=== PATIENT | male | born 1970 | race Caucasian/White ===

== ENCOUNTER 2017-10-22 14:45 | Emergency (ER) | payer BC ==
[~2017-10-22] VITALS: Ht 167.6 cm; Wt 88.1 kg
[~2017-10-22 14:45] MED LIST: ACET325T33 PO; FAMO20TA18 PO; LEVO750T25 PO; LOSA50TA2 PO; METR500T PO
[2017-10-22 14:47] VITALS: Ht 167.6 cm; Wt 88.1 kg
[2017-10-22 17:46] LABS: BASOPHIL # 0.1 10^3/ul (0.0-0.1); BASOPHILS % 0.7 % (0.0-2.0); EOSINOPHILS # 0.3 10^3/ul (0.0-0.5); EOSINOPHILS % 2.5 % (0.0-7.0); HEMATOCRIT 52.1 % (42.0-52.0); HEMOGLOBIN 17.4 g/dl (14.0-18.0); LYMPHOCYTES # 2.8 10^3/ul (0.8-2.9); LYMPHOCYTES % 22.7 % (15.0-51.0); MEAN CORPUSCULAR HEMOGLOBIN 29.8 pg (29.0-33.0); MEAN CORPUSCULAR HGB CONC 33.4 g/dl (32.0-37.0); MEAN CORPUSCULAR VOLUME 89.4 fl (82.0-101.0); MONOCYTE # 0.7 10^3/ul (0.3-0.9); MONOCYTES % 5.3 % (0.0-11.0); NEUTROPHIL # 8.5 10^3/ul (1.6-7.5); NEUTROPHILS % 68.4 % (39.0-77.0); PLATELET COUNT 271 10^3/UL (140-415); RED BLOOD COUNT 5.83 10^6/ul (4.70-6.10); RED CELL DISTRIBUTION WIDTH 13.2 % (11.5-14.5); WHITE BLOOD COUNT 12.4 10^3/ul (4.8-10.8)
--- NOTE | 2017-10-22 17:52 | RADRPT ---
PROCEDURE: XR Chest. CLINICAL INDICATION: Chest pain TECHNIQUE: A single PA view of the chest was obtained. COMPARISON: 03/21/2016 FINDINGS: The cardiomediastinal silhouette is within normal limits. Right costophrenic angle blunting is seen. The remaining lungs and pleural spaces are clear. The soft tissues and osseous structures are unre markable. IMPRESSION: Possible small right pleural effusion. RPTAT: HPNM Physician Justino Date Time Electronically viewed and signed by Jeyson Gama Physician on 10/22/2017 17:52 /
[2017-10-22] MEDS ORDERED: KETOROLAC 15 MG INJ IV STA (17:58)
[2017-10-22 18:22] LABS: ANION GAP 18 (8-16); BLOOD UREA NITROGEN 13 mg/dl (7-20); CALCIUM 9.5 mg/dl (8.4-10.2); CARBON DIOXIDE 23 mmol/L (21-31); CHLORIDE 105 mmol/L (97-110); CREATININE 0.76 mg/dl (0.61-1.24); GLUCOSE 273 mg/dl (70-220); POTASSIUM 4.5 mmol/L (3.5-5.1); SODIUM 141 mmol/L (135-144)
--- NOTE | 2017-10-22 18:35 | RADRPT ---
PROCEDURE: US abdomen right upper quadrant CLINICAL INDICATION: Abdominal pain. TECHNIQUE: Lora scale and color Doppler ultrasound of the right upper quadrant of the abdomen was p erformed. COMPARISON: MRCP dated 03/16/[address] dated 03/15/2017. FINDINGS: Pancreas: Visualized portions are unremarkable. Liver: Enlarged measuring 19.5 cm. Echogenic lesion measuring approximately 3 cm in the right hepati c lobe. Hepatopedal flow in the main portal vein. Gallbladder: No cholelithiasis, gallbladder wall thickening, or pericholecystic fluid. Common bile duct: 4.9 mm in diameter. Right Kidney: 11.1 cm in length. No nephrolithiasis, hydronephrosis, or mass. Ascites: None. IMPRESSION: 1. Hepatomegaly. 2. Echogenic approximately 3 cm lesion in the right hepatic lobe, consistent with the patient's kno wn benign hemangioma. RPTAT: HLBP .Brian Sarmiento MD, Date Time Electronically viewed and signed by .Brian Sarmiento MD, on 10/22/2017 18:34 .P/
[2017-10-22 18:46] LABS: TROPONIN-I < 0.012 ng/ml (0.00-0.12)
--- NOTE | 2017-10-22 19:00 | ERD ---
ER Documentation Chief Complaint Chief Complaint chest pressure started today , rt upper abd pain x 2 weeks HPI This is a 47-year-old male with a past medical history of hypertension, diabetes , GERD, benign liver hemangioma, former alcohol abuse, chronic pancreatitis with cystic lesions and pseudocyst formation in the past with an MRI that could not rule out metastatic disease, previous pleural effusions requiring thoracentesis who is presenting with approximately 2 weeks of right sided back pain, right upper quadrant pain and right-sided chest pain. The patient does not endorse feeling sick. He denies any fever or chills. He states that depending on how he moves, the pain will get worse. The pain is improved when his massages his back. The patient states that he is not normally short of breath with this, but the pain will cause him to catch his breath. He denies personal family history of coronary artery disease or heart attack. The patient has had no headache or vision changes. The patient does not endorse neck or back pain. The patient denies lightheadedness or dizziness. The patient denies nausea or vomiting. The patient denies changes to bowel movements or urination. The patient has had no focal deficits. The patient has had no weakness or numbness or tingling to the face or extremities. ROS All systems reviewed and are negative except as per history of present illness. Medications Home Meds Active Scripts Cyclobenzaprine Hcl* (Cyclobenzaprine Hcl*) 10 Mg Tablet, 5 MG PO TID Y for MUSCLE SPASMS, #15 TAB Prov:ROBYN ZAMBRANO MD 10/22/17 Levofloxacin* (Levaquin*) 750 Mg Tablet, 750 MG PO DAILY for 14 Days, TAB Prov:ELEANOR PEARSON MD 03/21/16 Famotidine* (Famotidine*) 20 Mg Tablet, 20 MG PO BID for 30 Days, TAB Prov:ELEANOR PEARSON MD 03/21/16 Metronidazole* (Flagyl*) 500 Mg Tablet, 500 MG PO Q8 for 14 Days, TAB Prov:ELEANOR PEARSON MD 03/21/16 Losartan Potassium* (Cozaar*) 50 Mg Tablet, 100 MG PO DAILY for 30 Days, TAB Prov:ELEANOR PEARSON MD 03/21/16 Acetaminophen* (Tylenol*) 325 Mg Tablet, 650 MG PO Q6H Y for PAIN AND OR ELEVATED TEMP, #30 TAB Prov:ELEANOR PEARSON MD 03/21/16 Allergies Allergies: Coded Allergies: No Known Drug Allergies (Verified Allergy, Unknown, 03/13/16) PMhx/Soc History of Surgery: Yes (Appendectomy, thoracentesis) Anesthesia Reaction: No Hx Neurological Disorder: No Hx Respiratory Disorders: Yes (Pleural effusions) Hx Cardiac Disorders: Yes (Hypertension, diabetes) Hx Psychiatric Problems: No Hx Miscellaneous Medical Probl: Yes (Pancreatitis, liver hemangioma, pancreatic cystic lesions) Hx Alcohol Use: Yes (History of abuse) Hx Substance Use: No Hx Tobacco Use: Yes Smoking Status: Current every day smoker FmHx Family History: diabetes, No coronary disease Physical Exam Vitals Vital Signs Date Time Temp Pulse Resp B/P Pulse Ox O2 Delivery O2 Flow Rate FiO2 10/22/17 20:21 75 17 148/88 100 Room Air 10/22/17 18:50 76 17 177/98 100 Room Air 10/22/17 17:34 Nasal Cannula 2 10/22/17 14:47 98.1 63 18 199/109 98 Physical Exam Const: No apparent distress, well-developed, well-nourished Head: Normocephalic, Atraumatic Eyes: Normal Conjunctiva. Extraocular movements intact. Pupils equal, round and reactive to light ENT: Normal External Ears, Nose and Mouth. Neck: Full range of motion. No meningismus. Resp: Decreased breath sounds bibasilarly, no wheezes, rales or rhonchi Cardio: Regular rate and rhythm. No murmurs, rubs or gallops Abd: Soft, non distended. Right upper quadrant tenderness. normal bowel sounds Skin: No petechiae or rashes Back: No midline tenderness. Mid thoracic bilateral paraspinal tenderness. no CVA tenderness Ext: No cyanosis, or edema Neur: Awake and alert, oriented 4. Cranial nerves intact. No facial droop. Normal strength, sensation and coordination. Psych: Normal Mood and Affect Result Diagram: 10/22/17 1730 10/22/17 1730 Results 24 hrs Laboratory Tests Test 10/22/17 17:30 White Blood Count 12.410^3/ul Red Blood Count 5.8310^6/ul Hemoglobin 17.4g/dl Hematocrit 52.1% Mean Corpuscular Volume 89.4fl Mean Corpuscular Hemoglobin 29.8pg Mean Corpuscular Hemoglobin Concent 33.4g/dl Red Cell Distribution Width 13.2% Platelet Count 57219^3/UL Mean Platelet Volume 11.0fl Neutrophils % 68.4% Lymphocytes % 22.7% Monocytes % 5.3% Eosinophils % 2.5% Basophils % 0.7% Nucleated Red Blood Cells % 0.0/100WBC Neutrophils # 8.510^3/ul Lymphocytes # 2.810^3/ul Monocytes # 0.710^3/ul Eosinophils # 0.310^3/ul Basophils # 0.110^3/ul Nucleated Red Blood Cells # 0.010^3/ul Sodium Level 141mmol/L Potassium Level 4.5mmol/L Chloride Level 105mmol/L Carbon Dioxide Level 23mmol/L Anion Gap 18 Blood Urea Nitrogen 13mg/dl Creatinine 0.76mg/dl Glucose Level 273mg/dl Calcium Level 9.5mg/dl Total Bilirubin 0.3mg/dl Direct Bilirubin 0.00mg/dl Indirect Bilirubin 0.3mg/dl Aspartate Amino Transf (AST/SGOT) 30IU/L Alanine Aminotransferase (ALT/SGPT) 33IU/L Alkaline Phosphatase 123IU/L Creatine Kinase 51IU/L Troponin I < 0.012ng/ml Total Protein 8.2g/dl Albumin 4.3g/dl Current Medications Medications (Trade) Dose Ordered Sig/Audra Route PRN Reason Start Time Stop Time Status Last Admin Dose Admin Ketorolac Tromethamine (Toradol) 15 mg ONCE STAT IV 10/22/17 17:58 10/22/17 17:59 DC 10/22/17 18:10 Cyclobenzaprine HCl (Flexeril) 10 mg ONCE ONCE PO 10/22/17 20:30 10/22/17 20:31 DC 10/22/17 20:27 Procedures/MDM MDM The patient's presentation warrants further investigation. The patient's symptoms create a wide differential. A cardiopulmonary workup needs to be performed. The patient's symptoms are worse with movement, so muscle strain or spasm is a possibility. I have decreased suspicion for a thoracic aortic aneurysm or dissection, but a chest x-ray will be performed to evaluate for widened mediastinum. The patient has had pleural effusions in the past, which will also be evaluated for on the chest x-ray. Blood work also be obtained to evaluate for a possible cardiac pathology. Right upper quadrant ultrasound will also be completed to evaluate the gallbladder. The patient's right sided thoracic symptoms could be referred pain. The patient does not have any evidence of peritonitis. The patient does not have any palpable pulsatile mass, and I have low suspicion for AAA. The patient does not have any left lower quadrant tenderness, and I have low suspicion for diverticulosis or diverticulitis. The patient does not have any right lower quadrant tenderness, and I have low suspicion for appendicitis. The patient does not have left upper quadrant tenderness. I have low suspicion for pancreatitis. The patient does not have any flank tenderness. He does not have gross hematuria. I have decreased suspicion for nephrolithiasis or renal colic. The patient does not have clinical symptoms concerning for mesenteric ischemia or ischemic colitis. LABS The patient's blood work was obtained and reviewed. The patient's CBC shows mild leukocytosis and no left shift. This is likely reactive. The patient is afebrile and does not appear systemically ill. I do not suspect a systemic infection. The patient is not anemic today. The patient's platelet count is unremarkable. The patient's CMP shows no signs of metabolic or electrolyte emergencies. He is hyperglycemic without evidence of an anion gap or DKA. This may be follow up on by an outpatient. The patient is aware. The patient has unremarkable renal and hepatic function testing. Troponin is negative. I have a decreased suspicion for a cardiac pathology. EKG EKG read by me: Rate/Rhythm: Regular rate and rhythm at a rate of 74 bpm Intervals: Normal [place]: Normal Impression: Nonspecific repolarization abnormality including T-wave flattening in leads III and aVF, but no ST or T-wave changes concerning for STEMI or arrhythmia IMAGING US RUQ FINDINGS: Pancreas: Visualized portions are unremarkable. Liver: Enlarged measuring 19.5 cm. Echogenic lesion measuring approximately 3 cm in the right hepatic lobe. Hepatopedal flow in the main portal vein. Gallbladder: No cholelithiasis, gallbladder wall thickening, or pericholecystic fluid. Common bile duct: 4.9 mm in diameter. Right Kidney: 11.1 cm in length. No nephrolithiasis, hydronephrosis, or mass. Ascites: None. IMPRESSION: Hepatomegaly. Echogenic approximately 3 cm lesion in the right hepatic lobe, consistent with the patient's known benign hemangioma. Electronically viewed and signed by .Brian Sarmiento MD, on 10/22/2017 18:34 CXR FINDINGS: The cardiomediastinal silhouette is within normal limits. Right costophrenic angle blunting is seen. The remaining lungs and pleural spaces are clear. The soft tissues and osseous structures are unremarkable. IMPRESSION: Possible small right pleural effusion. Electronically viewed and signed by Jeyson Gama Physician on 10/22/2017 17 :52 TREATMENT/DISPOSITION Many of the patient's findings are already known and have been treated in the past. I do not feel that the patient requires inpatient management of his symptoms at this time but he does require close follow up with his primary doctor who can coordinate his care. The patient's past imaging has not ruled out pancreatic cancer. The patient does not have symptoms consistent with a pancreatic pathology today. However, this should be worked up if it hasn't already. The patient has previously diagnosed chronic pancreatitis, and know past alcohol abuse. It is curious that the US from today did not reveal cholelithiasis when the patient had diagnosed cholelithiasis in the past. There was no evidence of cholecystitis today. Muscle spasm is still a possibility. This will be treated for in the ER. The patient was given toradol and flexeril. His symptoms improved greatly. I have decreased suspicion for a cardiac or pulmonary etiology. The patient is aware of his chronic pleural effusions. He does not require thoracentesis today. At this time, I feel that the patient stable for discharge. The patient will need follow-up with his primary care physician in 2-3 days. The patient will be given strict precautions with which to return to the emergency department. The patient was given a prescription for flexeril. The patient's blood pressure was elevated at greater than 120/80 while in the emergency department. The patient was otherwise stable with no evidence of hypertensive urgency or emergency or end organ damage. The patient does not require admission for blood pressure control. I have discussed with the patient the risks of hypertension. I have advised the patient to follow up with the primary care physician for outpatient monitoring and treatment for hypertension in 2-3 days. I have instructed the patient to return to the ER for any new or worsening symptoms including chest pain, shortness of breath, headache, blurred vision, confusion, nausea, vomiting or LOC. Disclaimer: Inadvertent spelling and grammatical errors are likely due to EHR/ dictation software use and do not reflect on the overall quality of patient care. Note that the electronic time recorded on this note does not necessarily reflect the actual time of the patient encounter. Departure Diagnosis: Primary Impression: Muscle spasm Additional Impressions: Chest pain Chest pain type: unspecified Qualified Code: R07.9 - Chest pain, unspecified type RUQ abdominal pain Hepatic hemangioma Hyperglycemia Condition: Stable ROBYN ZAMBRANO MD Oct 22, 2017 19:00
[2017-10-22 19:31] LABS: CREATINE KINASE 51 IU/L (23-200)
[2017-10-22 19:56] LABS: ALBUMIN 4.3 g/dl (3.3-4.9); BILIRUBIN,INDIRECT 0.3 mg/dl (0-1.1); BILIRUBIN,TOTAL 0.3 mg/dl (0.2-1.3); TOTAL PROTEIN 8.2 g/dl (6.1-8.1)
[2017-10-22] MEDS ORDERED: CYCL-319 PO (20:06)
[2017-10-22 20:21] VITALS: BP 148/88; PULSE 75; RESP 17
[2017-10-22] MEDS ORDERED: CYCLOBENZAPRINE 10 MG TAB PO ONE (20:30)
== END 2017-10-22 20:21 | disposition home or self-care (01) ==
LOC: E/R 14:45
DX: D18.03 Hemangioma of intra-abdominal structures (principal); E11.65 Type 2 diabetes mellitus with hyperglycemia; M62.838 Other muscle spasm; I10 Essential (primary) hypertension; F17.210 Nicotine dependence, cigarettes, uncomplicated
CPT/HCPCS: 36415; 71010; 76705; 80048; 80076; 82550; 84484; 85025; 96374; J1885; Z7502; Z7610; 93005